=== PATIENT | female | born 1995 | race Two or more races ===

== ENCOUNTER 2021-02-02 17:17 | Emergency (ER) | payer OTHER ==
[~2021-02-02] VITALS: Ht 160 cm; Wt 66.2 kg
[2021-02-02] MEDS ORDERED: PRENA1 TRUE CO1 EACH (17:26)
[2021-02-02] MEDS ORDERED: CHILDREN'S ASPI81 MG (17:26)
[2021-02-02] MEDS ORDERED: ATABEX DHA 200200 MG (17:26)
== END 2021-02-02 19:39 | disposition home or self-care (01) ==
LOC: ER 17:17
DX: R10.2 Pelvic and perineal pain (principal)

== ENCOUNTER 2021-04-19 10:11 | Outpatient (CLI) | payer OTHER ==
[~2021-04-19 10:11] MED LIST: ATABEX DHA 200200 MG; CHILDREN'S ASPI81 MG; PRENA1 TRUE CO1 EACH
[2021-04-23] MEDS ORDERED: METFORMIN HCL500 M3 PO ×2 (10:02→14:55)
== END 2021-04-19 12:25 | disposition home or self-care (01) ==
LOC: PRENATAL 10:11
PROVIDERS: ATTEND Obstetrics & Gynecology Maternal & Fetal Medicine
DX: O35.0XX1 Maternal care for (suspected) central nervous system malformation in fetus, fetus 1 (principal); O35.3XX1 Maternal care for (suspected) damage to fetus from viral disease in mother, fetus 1; O98.513 Other viral diseases complicating pregnancy, third trimester; O24.410 Gestational diabetes mellitus in pregnancy, diet controlled; Z36.89 Encounter for other specified antenatal screening; Z3A.29 29 weeks gestation of pregnancy

== ENCOUNTER 2021-05-28 08:25 | Outpatient (CLI) | payer OTHER ==
[~2021-05-28 08:25] MED LIST changes: +ALCOHOL PADS1 EACH TOP; +HUMULIN N100 UNIT/2 SUBCUTANEO; +HUMULIN R100 UNIT/1 SUBCUTANEO; +INSULIN SYRING1 EA29 SUBCUTANEO; +METFORMIN HCL500 M3 PO
== END 2021-05-28 09:07 | disposition home or self-care (01) ==
LOC: PRENATAL 08:25
PROVIDERS: ATTEND Obstetrics & Gynecology Maternal & Fetal Medicine
DX: O09.892 Supervision of other high risk pregnancies, second trimester (principal); Z31.430 Encounter of female for testing for genetic disease carrier status for procreative management; O24.419 Gestational diabetes mellitus in pregnancy, unspecified control; O26.849 Uterine size-date discrepancy, unspecified trimester

== ENCOUNTER 2021-07-02 04:16 | Inpatient (IN) | payer OTHER ==
[~2021-07-02] VITALS: Ht 160 cm; Wt 70.3 kg
[2021-07-02] MEDS ORDERED: HUMULIN N100 UNIT/2 SUBCUTANEO (04:40)
[2021-07-02] MEDS ORDERED: HUMULIN R100 UNIT/1 SUBCUTANEO (04:41)
[2021-07-05] MEDS ORDERED: SIMETHICONE125 M1 PO (07:19)
[2021-07-05] MEDS ORDERED: IBUPROFEN400 MG PO (07:19)
[2021-07-05] MEDS ORDERED: SENOKOT8.6 M1 PO (07:19)
== END 2021-07-05 12:57 | disposition home or self-care (01) | DRG 788 ==
LOC: LDR 04:16 → OB/GYN 04:16
PROVIDERS: ADMIT Obstetrics & Gynecology; ATTEND Obstetrics & Gynecology
PROC: 3E033VJ Introduction of Other Hormone into Peripheral Vein, Percutaneous Approach (ICD-10-PCS; 2021-07-02)
PROC: 4A1HXCZ Monitoring of Products of Conception, Cardiac Rate, External Approach (ICD-10-PCS; 2021-07-02)
PROC: 10D00Z1 Extraction of Products of Conception, Low, Open Approach (ICD-10-PCS; principal; 2021-07-02 17:15)
DX: O61.0 Failed medical induction of labor (principal); O24.410 Gestational diabetes mellitus in pregnancy, diet controlled; Z3A.39 39 weeks gestation of pregnancy; Z37.0 Single live birth; Z20.822 Contact with and (suspected) exposure to COVID-19